=== PATIENT | female | born 1980 | race Caucasian/White ===

== ENCOUNTER 2018-07-11 16:57 | Emergency (ER) | payer MEDICARE ==
[~2018-07-11] VITALS: Ht 165.1 cm; Wt 145.1 kg
--- OUTSIDE RECORDS SUMMARY | 2018-07-11 17:00 | XMS REPORT | Continuity of Care Document ---
Author Author [facility] Interface Address Unknown Phone Unavailable Problems Problem Status Onset Date Classification Date Reported Comments Source PAIN Active 03/17/2014 [facility] CHOLECYSTITIS Active 03/17/2014 [facility] Discharge Diagnosis: Dyspnea 01/05/2014 01/08/2014 [facility] Discharge Diagnosis: Abdominal pain in 01/05/2014 01/08/2014 [facility] RUQ PAIN Active 01/05/2014 [facility] CHEST PAINS Active 01/04/2014 [facility] Resolved 03/23/2013 Problem 03/20/2014 [facility] Diabetes, gestational Active Problem 03/20/2014 [facility] Gestational diabetes mellitus, class A>1< Active Problem 03/20/2014 [facility] JUAN Active 05/11/2018 [facility] Major depressive disorder in full remission, unspecified whether recurrent Active 05/11/2018 [facility] CHOLECYSTITIS NOS Active [facility] Medications Medication Details Route Status Patient Instructions Ordering Provider Order Date Source DULoxetine (CYMBALTA) 30 mg delayed release capsule Take 3 capsules by mouth daily. Oral Active 04/22/2018 [facility] escitalopram oxalate (LEXAPRO) 20 mg tablet Take 20 mg by mouth daily. Oral No Longer Active 03/18/2018 [facility] DULoxetine (CYMBALTA) 60 mg delayed release capsule Take 1 capsule by mouth daily. Oral No Longer Active 03/18/2018 [facility] DULoxetine (CYMBALTA) 30 mg delayed release capsule Take 1 capsule by mouth every morning for 1 week, then increase to 2 capsules every morning. No Longer Active 02/18/2018 [facility] Duloxetine 30 Mg Capsule,Delayed Release Cymbalta 30 Mg Capsule,Delayed Release Take 1 capsule by mouth every morning for 1 week, then increase to 2 capsules every morning. Active 02/18/2018 [facility] Zofran 4 mg, Route: IV, Q4H, Dosing Weight 125.909, kg, Start date: 03/18/14 20:00:00, Duration: 30 day, Stop date: 04/17/14 16:00:00 Inactive 03/19/2014 [facility] Acetaminophen 325 MG / Hydrocodone Bitartrate 5 MG Oral Tablet 2 tab, PO, Q4H, Pain Score 4-6, 0 Refill(s) Active 03/19/2014 [facility] Zofran 4 mg, 2 mL, Route: IV, Drug form: INJ, Q4H, Dosing Weight 125.909, kg, PRN as needed for nausea/vomiting, Start date: 03/18/14 17:04:00, Duration: 30 day, Stop date: 04/17/14 17:03:00Notes: (Same as: Zofran) Inactive 03/18/2014 [facility] Acetaminophen 325 MG / Hydrocodone Bitartrate 5 MG Oral Tablet 2 tab, Route: PO, Drug Form: TAB, Dosing Weight 125.909, kg, Q4H, PRN Pain Score 4-6, Start date: 03/18/14 16:02:00, Duration: 30 day, Stop date: 04/17/14 16:01:00Notes: (Same as: Lowgap 325/5) Do not exceed 4gm/day of acetaminophen. Inactive 03/18/2014 [facility] Morphine 2 mg, 1 mL, Route: IVP, Drug form: INJ, Q2H, Dosing Weight 125.909, kg, PRN Pain Score 7-10, Start date: 03/18/14 16:01:00, Duration: 30 day, Stop date: 04/17/14 16:00:00Notes: (Same as:MORPhine Sulfate) Inactive 03/18/2014 [facility] Ofirmev 1,000 mg, Route: IV, Drug form: INJ, ONCE, Dosing Weight 125.909, kg, PRN Pain, for > or=50 kg, Start date: 03/18/14 12:10:00 Inactive 03/18/2014 [facility] Acetaminophen 325 MG / Hydrocodone Bitartrate 10 MG Oral Tablet [Lowgap 10/325] 1 tab, Route: PO, Drug Form: TAB, Dosing Weight 125.909, kg, Q4H, PRN Pain, Start date: 03/18/14 12:10:00, Duration: 30 day, Stop date: 04/17/14 12:09:00 Inactive 03/18/2014 [facility] Naloxone 0.04 mg, Route: IVP, Q2MIN, Dosing Weight 125.909, kg, PRN Narcotic Reversal, Start date: 03/18/14 12:10:00, Duration: 8 doses or times, Stop date: Limited # of times Inactive 03/18/2014 [facility] Oxycodone 5 mg, Route: PO, Drug form: TAB, Q4H, Dosing Weight 125.909, kg, PRN Pain Score 4-6, Start date: 03/18/14 12:10:00, Duration: 30 day, Stop date: 04/17/14 12:09:00 Inactive 03/18/2014 [facility] Fentanyl 25 microgram, Route: IVP, Q5Min, Dosing Weight 125.909, kg, PRN Pain Score 4-6, Start date: 03/18/14 12:10:00, Duration: 4 doses or times, Stop date: Limited # of times Inactive 03/18/2014 [facility] Hydromorphone 0.5 mg, Route: IVP, Q5Min, Dosing Weight 125.909, kg, PRN Pain Score 7-10, Start date: 03/18/14 12:10:00, Duration: 4 doses or times, Stop date: Limited # of times Inactive 03/18/2014 [facility] Ondansetron 4 mg, Route: IVP, ONCE, Dosing Weight 125.909, kg, PRN Nausea & Vomiting, Start date: 03/18/14 12:10:00 Inactive 03/18/2014 [facility] Flumazenil 0.2 mg, Route: IVP, PRN, Dosing Weight 125.909, kg, PRN Benzodiazepine Reversal, Initial dose, Start date: 03/18/14 12:10:00, Duration: 30 day, Stop date: 04/17/14 12:09:00 Inactive 03/18/2014 [facility] Meperidine 12.5 mg, Route: IVP, Q30Min, Dosing Weight 125.909, kg, PRN Other -See Comment, For shivering, Start date: 03/18/14 12:10:00, Duration: 2 doses or times, Stop date: Limited # of times Inactive 03/18/2014 [facility] Influenza Virus Vaccine, Inactivated H-Gopjfncl-25-2007 (H3N2)-like virus (B-Qepcxuz-880-2007 [facility] [place] X-175C) strain / Influenza Virus Vaccine, Inactivated S-Aumcgmxo-92-2007, IVR-148 (H1N1) strain / Influenza Virus Vaccine, Inactivated, G-Zvknjfx-1-lik 0.5 mL, Route: IM, Drug Form: SUSP, Daily, Start date: 03/18/14 9:00:00, Duration: 1 doses or times, Stop date: 03/18/14 9:00:00Notes: (Same as: Fluzone Quadrivalent) Inactive 03/18/2014 [facility] Ondansetron 4 mg, 2 mL, Route: IVP, Drug form: INJ, Q8H, Dosing Weight 125.909, kg, PRN Nausea & Vomiting, Start date: 03/18/14 4:47:56, Stop date: 04/17/14 4:42:00Notes: (Same as: Zofran) Inactive 03/18/2014 [facility] Morphine 2 mg, 1 mL, Route: IVP, Drug form: INJ, Q3H, Dosing Weight 125.909, kg, PRN Pain Score 4-6, Start date: 03/18/14 4:47:51, Stop date: 04/17/14 4:42:00Notes: (Same as:MORPhine Sulfate) Inactive 03/18/2014 [facility] D5NS 1,000 mL 1,000 mL, Rate: 150 ml/hr, Infuse over: 6.7 hr, Route: IV, Dosing Weight 125.909 kg, Total Volume: 1,000, Start date: 03/18/14 4:47:46, Stop date: 04/17/14 4:42:00 Inactive 03/18/2014 [facility] D5NS 1,000 mL 1,000 mL, Rate: 150 ml/hr, Infuse over: 6.7 hr, Route: IV, Dosing Weight 125.909 kg, Total Volume: 1,000, Start date: 03/18/14 4:43:00, Duration: 30 day, Stop date: 04/17/14 4:42:00 Inactive 03/18/2014 [facility] Ondansetron 4 mg, 2 mL, Route: IVP, Drug form: INJ, Q8H, Dosing Weight 125.909, kg, PRN Nausea & Vomiting, Start date: 03/18/14 4:43:00, Duration: 30 day, Stop date: 12/29/14 4:42:00Notes: (Same as: Zofran) Inactive 03/18/2014 [facility] Morphine 2 mg, 1 mL, Route: IVP, Drug form: INJ, Q3H, Dosing Weight 125.909, kg, PRN Pain Score 4-6, Start date: 03/18/14 4:43:00, Duration: 30 day, Stop date: 04/17/14 4:42:00Notes: (Same as:MORPhine Sulfate) Inactive 03/18/2014 [facility] Multivitamins with Folic Acid 0.4 mg oral tablet 1 tab, PO, Daily, # 100 tab, 0 Refill(s) On Hold 03/18/2014 [facility] Morphine 4 mg, 2 mL, Route: IVP, Drug form: INJ, ONCE, Dosing Weight 125.909, kg, Priority: STAT, Start date: 03/18/14 3:12:00, Stop date: 03/18/14 3:12:00Notes: (Same as:MORPhine Sulfate) Inactive 03/18/2014 [facility] D5NS 1,000 mL 1,000 mL, Rate: 150 ml/hr, Infuse over: 6.7 hr, Route: IV, Dosing Weight 125.909 kg, Total Volume: 1,000, Start date: 03/18/14 3:12:00, Duration: 30 day, Stop date: 04/17/14 3:11:00 Inactive 03/18/2014 [facility] Invanz 1 gm, Route: IVPB, ONCE, Dosing Weight 125.909, kg, Priority: STAT, Start date: 03/18/14 3:11:00, Stop date: 03/18/14 3:11:00Notes: (Same as: INVanz) Refrigerate. NOT COMPATIBLE WITH D5W. Stable in refrigerator for 24 hours. Inactive 03/18/2014 [facility] Sodium Chloride 0.9% (titrate) 250 mL 250 mL, Rate: policy services representative for use with blood product administration, Dosing Weight 125.909, kg, Route: IV, Total Volume: 250, Start Date: 03/18/14 2:42:00, Duration: 1 day, Stop date: 03/19/14 2:41:00, Replace Every: 24 hr Inactive 03/18/2014 [facility] Sodium Chloride 0.154 MEQ/ML Injectable Solution 500 mL, 500 ml/hr, Infuse Over: 1 hr, Route: IV, 500, Drug form: INJ, ONCE, Priority: STAT, Dosing Weight 125.909 kg, Start date: 03/17/14 22:11:00, Duration: 1 doses or times, Stop date: 03/17/14 22:11:00 Inactive 03/18/2014 [facility] Zofran 4 mg, 2 mL, Route: IVP, Drug form: INJ, ONCE, Dosing Weight 125.909, kg, Priority: STAT, Start date: 03/17/14 22:10:00, Stop date: 03/17/14 22:10:00Notes: (Same as: Zofran) Inactive 03/18/2014 [facility] Morphine 4 mg, 2 mL, Route: IVP, Drug form: INJ, ONCE, Dosing Weight 125.909, kg, Priority: STAT, Start date: 03/17/14 22:09:00, Stop date: 03/17/14 22:09:00Notes: (Same as:MORPhine Sulfate) Inactive 03/18/2014 [facility] Escitalopram 20 Mg Tablet Lexapro 20 Mg Tablet Take 20 mg by mouth daily. Oral Active [facility] Allergies, Adverse Reactions, Alerts Substance Category Reaction Severity Reaction type Status Date Reported Comments Source Tramadol Propensity to adverse reactions to drug Active 02/18/2018 [facility] Immunizations Immunization Date Given Site Status Last Updated Comments Source influenza virus vaccine, inactivated 03/18/2014 Left Deltoid completed Reece [facility] Results Order Name Results Value Reference Range Date Interpretation Comments Source BLOOD BANK RESULTS AB Int Anti- D 03/18/2014 [facility] BLOOD BANK RESULTS Antibody Scrn Positive 1 (03/18/14 3:26 AM) 03/18/2014 1Result Comment: 03/18/2014 04:41 [id number] "Significant Findings (Pos ABSC) called to Werner Ruvalcaba at 03/18/2014 04:41 by NICOLLE. Read Back OK." [facility] BLOOD BANK RESULTS ABO/Rh O NEG 03/18/2014 [facility] BLOOD BANK RESULTS AB Int Anti- D 03/18/2014 [facility] BLOOD BANK RESULTS AB Int Non- specific IgG Antibody 03/18/2014 [facility] HEMATOLOGY PTT 31.1 s 22.9 - 35.8 03/18/2014 5Interpretive Data: Heparin Therapeutic Range: 57 - 92 Seconds [facility] HEMATOLOGY PT 13.0 s 12.0 - 14.7 03/18/2014 [facility] HEMATOLOGY INR 0.98 0.85 - 1.17 03/18/2014 4Interpretive Data: RECOMMENDED RANGES FOR PROTIME INR: 2.0-3.0 for most medical and surgical thromboembolic states. 2.5-3.5 for artificial heart valves and recurrent embolism. INR SHOULD BE USED ONLY FOR PATIENTS ON STABLE ANTICOAGULANT THERAPY. [facility] URINE AND STOOL UA Bacteria Occasional /HPF None Seen /HPF 03/18/2014 [facility] URINE AND STOOL UA WBC 4 /HPF 0 - 5 03/18/2014 [facility] URINE AND STOOL UA RBC 4 /HPF 0 - 2 03/18/2014 [facility] URINE AND STOOL UA Mucus Few /LPF None Seen /LPF 03/18/2014 [facility] URINE AND STOOL UA Leuk Est Moderate *ABN* (03/17/14 11:11 PM) Negative 03/18/2014 [facility] URINE AND STOOL UA Sq Epi Occasional /LPF Few /LPF 03/18/2014 [facility] URINE AND STOOL UA Urobilinogen 2.0 mg/dL 0.1 - 1.0 03/18/2014 [facility] URINE AND STOOL UA Blood Negative (03/17/14 11:11 PM) Negative 03/18/2014 [facility] URINE AND STOOL UA Bili Negative *NA* (03/17/14 11:11 PM) Negative 03/18/2014 [facility] URINE AND STOOL UA Glucose Negative mg/dL Negative mg/dL 03/18/2014 [facility] URINE AND STOOL UA Ketones Negative mg/dL Negative mg/dL 03/18/2014 [facility] URINE AND STOOL UA Nitrite Negative (03/17/14 11:11 PM) Negative 03/18/2014 [facility] URINE AND STOOL UA Color Yellow *NA* (03/17/14 11:11 PM) Yellow 03/18/2014 [facility] URINE AND STOOL UA pH 5.0 5.0 - 8.0 03/18/2014 [facility] URINE AND STOOL UA Turbidity Clear (03/17/14 11:11 PM) Clear 03/18/2014 [facility] URINE AND STOOL UA Spec Grav 1.024 <=1.030 03/18/2014 [facility] URINE AND STOOL UA Protein Negative mg/dL Negative mg/dL 03/18/2014 [facility] CHEM PANEL Lipase Lvl 181 unit/L 73 - 393 03/18/2014 [facility] CHEM PANEL Globulin 3.5 g/dL 2.0 - 4.0 03/18/2014 [facility] CHEM PANEL AGAP 10.3 meq/L 10.0 - 20.0 03/18/2014 [facility] CHEM PANEL B/C Ratio 16 6 - 25 03/18/2014 [facility] CHEM PANEL A/G Ratio 1.0 0.7 - 1.6 03/18/2014 [facility] CHEM PANEL eGFR 66 mL/min/1.73m2 03/18/2014 2Result Comment: The eGFR is calculated using the CKD-EPI formula. In most young, healthy individuals the eGFR will be >90 mL/min/1.73m2. The eGFR declines with age. An eGFR of 60-89 may be normal in some populations, particularly the elderly, for whom the CKD-EPI formula has not been extensively validated. Use of the eGFR is not recommended in the following populations: Individuals with unstable creatinine concentrations, including patients and those with serious co-morbid conditions. Patients with extremes in muscle mass or diet. The data above are obtained from the National Kidney Disease Education Program (NKDEP) which additionally recommends that when the eGFR is used in patients with extremes of body mass index for purposes of drug dosing, the eGFR should be multiplied by the estimated BMI. [facility] CHEM PANEL CO2 28 meq/L 24 - 32 03/18/2014 [facility] CHEM PANEL Calcium Lvl 9.0 mg/dL 8.5 - 10.5 03/18/2014 [facility] CHEM PANEL Total Protein 7.0 g/dL 6.4 - 8.4 03/18/2014 [facility] CHEM PANEL Alk Phos 130 unit/L 39 - 136 03/18/2014 [facility] CHEM PANEL Bili Total 0.4 mg/dL 0.2 - 1.3 03/18/2014 [facility] CHEM PANEL ALT 33 unit/L 0 - 65 03/18/2014 [facility] CHEM PANEL AST 31 unit/L 0 - 37 03/18/2014 [facility] CHEM PANEL Albumin Lvl 3.5 g/dL 3.5 - 5.0 03/18/2014 [facility] CHEM PANEL BUN 18 mg/dL 7 - 22 03/18/2014 [facility] CHEM PANEL Creatinine Lvl 1.1 mg/dL 0.5 - 1.4 03/18/2014 [facility] CHEM PANEL Glucose Lvl 121 mg/dL 70 - 99 03/18/2014 3Interpretive Data: Adult reference range values reflect the clinical guidelines of the [employer]. [facility] CHEM PANEL Chloride Lvl 105 meq/L 95 - 109 03/18/2014 [facility] CHEM PANEL Sodium Lvl 139 meq/L 135 - 145 03/18/2014 [facility] CHEM PANEL Potassium Lvl 4.3 meq/L 3.5 - 5.1 03/18/2014 [facility] ENDOCRINOLOGY S Preg Negative *NA* (03/17/14 10:18 PM) Negative 03/18/2014 [facility] HEMATOLOGY RBC 3.93 M/CMM 4.20 - 5.40 03/18/2014 [facility] HEMATOLOGY WBC 11.3 K/CMM 3.7 - 10.4 03/18/2014 [facility] HEMATOLOGY Hgb 12.5 g/dL 12.0 - 16.0 03/18/2014 [facility] MCH 31.9 pg 27.0 - 31.0 03/18/2014 [facility] RDW 13.2 % 11.5 - 14.5 03/18/2014 [facility] HEMATOLOGY MPV 8.7 fL 7.4 - 10.4 03/18/2014 [facility] HEMATOLOGY Hct 38.3 % 36.0 - 48.0 03/18/2014 [facility] HEMATOLOGY MCV 97.3 fL 80.0 - 98.0 03/18/2014 [facility] MCHC 32.8 g/dL 32.0 - 36.0 03/18/2014 [facility] HEMATOLOGY Platelet 235 K/CMM 133 - 450 03/18/2014 [facility] HEMATOLOGY Basophils 0.5 % 0.0 - 1.0 03/18/2014 [facility] HEMATOLOGY Lymphocytes # 2.0 K/CMM 1.0 - 5.5 03/18/2014 [facility] HEMATOLOGY Segs-Bands # 8.5 K/CMM 1.5 - 8.1 03/18/2014 [facility] HEMATOLOGY Monocytes # 0.6 K/CMM 0.0 - 0.8 03/18/2014 [facility] HEMATOLOGY Eosinophils # 0.2 K/CMM 0.0 - 0.5 03/18/2014 [facility] HEMATOLOGY Basophils # 0.1 K/CMM 0.0 - 0.2 03/18/2014 [facility] HEMATOLOGY Segs 74.9 % 45.0 - 75.0 03/18/2014 [facility] HEMATOLOGY Monocytes 5.0 % 2.0 - 12.0 03/18/2014 [facility] HEMATOLOGY Lymphocytes 17.9 % 20.0 - 40.0 03/18/2014 [facility] HEMATOLOGY Eosinophils 1.7 % 0.0 - 4.0 03/18/2014 [facility] Chest 1view Chest 1view HISTORY: Abnormal chest sounds. One view chest. Lungs are clear. Heart size normal. There is no pleural effusion or pneumothorax. IMPRESSION: No acute finding. SL:12 03/18/2014 - - Read by: Satish Arenas MD Dictated Date/time: 03/18/14 03:06 Electronically Signed by: Satish Arenas MD 03/18/14 03:08 FINAL REPORT [facility] Vital Signs Vital Sign Value Date Comments Source Systolic (mm Hg) 122 04/22/2018 [facility] Diastolic (mm Hg) 72 04/22/2018 [facility] Heart Rate 72 04/22/2018 [facility] Temperature Oral (F) 36.28 [place] 04/22/2018 [facility] Respitory Rate 18 04/22/2018 [facility] Height 167.6 cm 04/22/2018 [facility] Weight 143.79 04/22/2018 [facility] Systolic (mm Hg) 136 03/18/2018 [facility] Diastolic (mm Hg) 78 03/18/2018 [facility] Heart Rate 108 03/18/2018 [facility] Temperature Oral (F) 36.61 [place] 03/18/2018 [facility] Respitory Rate 20 03/18/2018 [facility] Height 167.6 cm 03/18/2018 [facility] Weight 143.79 03/18/2018 [facility] Systolic (mm Hg) 121 02/18/2018 [facility] Diastolic (mm Hg) 57 02/18/2018 [facility] Heart Rate 78 02/18/2018 [facility] Temperature Oral (F) 36.61 [place] 02/18/2018 [facility] Respitory Rate 20 02/18/2018 [facility] Height 167.6 cm 02/18/2018 [facility] Weight 145.151 02/18/2018 [facility] BMI Calculated 51.65 02/18/2018 [facility] Temperature Oral (F) 97.3 F 03/18/2014 [facility] Systolic (mm Hg) 123 03/18/2014 [facility] Respitory Rate 14 03/18/2014 [facility] Heart Rate 59 03/18/2014 [facility] Diastolic (mm Hg) 78 03/18/2014 [facility] Diastolic (mm Hg) 63 03/18/2014 [facility] Systolic (mm Hg) 109 03/18/2014 [facility] Respitory Rate 12 03/18/2014 [facility] Diastolic (mm Hg) 62 03/18/2014 [facility] Respitory Rate 12 03/18/2014 [facility] Systolic (mm Hg) 108 03/18/2014 [facility] Temperature Oral (F) 97.6 F 03/18/2014 [facility] Heart Rate 50 03/18/2014 [facility] BMI Calculated 44.8 03/18/2014 [facility] Weight 125.909 03/18/2014 [facility] Height 167.64 cm 03/18/2014 [facility] Heart Rate 54 03/18/2014 [facility] Temperature Oral (F) 97.7 F 03/18/2014 [facility] BMI Calculated 44.8 03/18/2014 [facility] Height 167.64 cm 03/18/2014 [facility] Weight 125.909 03/18/2014 [facility] Systolic (mm Hg) 133 01/05/2014 [facility] Diastolic (mm Hg) 62 01/05/2014 [facility] Systolic (mm Hg) 130 01/05/2014 [facility] Diastolic (mm Hg) 59 01/05/2014 [facility] Respitory Rate 16 01/05/2014 [facility] Temperature Oral (F) 97.8 F 01/05/2014 [facility] Heart Rate 67 01/05/2014 [facility] BMI Calculated 48.2 01/05/2014 [facility] Weight 135.455 01/05/2014 [facility] Height 167.64 cm 01/05/2014 [facility] Heart Rate 71 01/05/2014 [facility] Systolic (mm Hg) 137 01/05/2014 [facility] Respitory Rate 18 01/05/2014 [facility] Diastolic (mm Hg) 67 01/05/2014 [facility] Height 167.64 cm 01/05/2014 [facility] BMI Calculated 48.2 01/05/2014 [facility] Weight 135.455 01/05/2014 [facility] Respitory Rate 20 01/05/2014 [facility] Heart Rate 71 01/05/2014 [facility] Temperature Oral (F) 97.8 F 01/05/2014 [facility] Diastolic (mm Hg) 119 01/05/2014 [facility] Systolic (mm Hg) 149 01/05/2014 [facility] Encounters Location Location Details Encounter Type Encounter Number Reason For Visit Attending Provider ADM Date DC Date Status Source [facility] [id number] Brando Dean 01/05/2014 01/05/2014 [facility] OBS Observation Patient [id number] Evelin Mcintosh 01/05/2014 01/05/2014 [facility] Inpatient [id number] Alfonso Barba 03/18/2014 [facility] Office Visit [id number] Laura Jackson MD 02/18/2018 02/18/2018 [facility] Visit [id number] 02/19/2018 [facility] [id number] [facility] [facility] [id number] Laura Jackson MD 03/18/2018 03/18/2018 [facility] [id number] 04[facility]22/[address] [facility] Office Visit [id number] Laura Jackson MD 04/22/2018 04/22/2018 [facility] Procedures Procedure Code Date Perfomer Comments Source Lymph node operation [id number] [facility] Operation on tonsils [id number] [facility]
--- OUTSIDE RECORDS SUMMARY | 2018-07-11 17:00 | XMS REPORT | Clinical Summary ---
Author Author [facility] Organization [facility] Address Unknown Phone Unavailable Care Team Providers Care Efficiency Manager Name Role Phone PCP Unavailable Allergies Comments Active Allergy Reactions Severity Noted Date Tramadol 02/18/2018 Medications End Date Status Medication Sig Dispensed Refills Start Date Active DULoxetine (CYMBALTA) 30 Take 3 90 capsule 2 201 mg delayed release capsules by 9 capsuleIndications: JUAN mouth daily. (generalized anxiety disorder), Major depressive disorder in full remission, unspecified whether recurrent 03/18/2018 Discontinued escitalopram oxalate Take 20 mg by 0 (LEXAPRO) 20 mg mouth daily. tabletIndications: JUAN (generalized anxiety disorder), Major depressive disorder in full remission, unspecified whether recurrent 03/18/2018 Discontinued DULoxetine (CYMBALTA) 30 Take 1 60 capsule 2 201 mg delayed release capsule by 8 capsuleIndications: JUAN mouth every (generalized anxiety morning for 1 disorder), Major week, then depressive disorder in increase to 2 full remission, capsules unspecified whether every recurrent morning. 04/22/2018 Discontinued DULoxetine (CYMBALTA) 60 Take 1 30 capsule 2 201 mg delayed release capsule by 8 capsuleIndications: JUAN mouth daily. (generalized anxiety disorder) Active Problems Not on file Encounters Care Team Description Date Type Specialty Laura Jackson MD JUAN (generalized anxiety disorder) (Primary Dx); Major depressive disorder in full remission, unspecified whether recurrent 04/22/2018 Office Visit Psychiatry 04/22/2018 Travel Laura Jackson MD JUAN (generalized anxiety disorder) (Primary Dx) 03/18/2018 Office Visit Psychiatry Laura Jackson MD JUAN (generalized anxiety disorder) (Primary Dx); Major depressive disorder in full remission, unspecified whether recurrent 02/18/2018 Office Visit Psychiatry after 07/10/2017 Social History Date Tobacco Use Types Packs/Day Years Used Never Assessed Sex Assigned at Date Recorded Not on file Industry Job Start Date Occupation Not on file Not on file Not on file Travel End Travel History Travel Start No recent travel history available. Last Filed Vital Signs Time Taken Vital Sign Reading 04/22/2018 10:42 AM COMPUTATIONAL THEORY SCIENTIST Blood Pressure 122/72 04/22/2018 10:42 AM COMPUTATIONAL THEORY SCIENTIST Pulse 72 04/22/2018 10:42 AM COMPUTATIONAL THEORY SCIENTIST Temperature 36.3 C (97.3 F) 04/22/2018 10:42 AM COMPUTATIONAL THEORY SCIENTIST Respiratory Rate 18 04/22/2018 10:42 AM COMPUTATIONAL THEORY SCIENTIST Oxygen Saturation 96% - Inhaled Oxygen - Concentration 04/22/2018 10:42 AM COMPUTATIONAL THEORY SCIENTIST Weight 143.8 kg (317 lb) 04/22/2018 10:42 AM COMPUTATIONAL THEORY SCIENTIST Height 167.6 cm (5' 6") 04/22/2018 10:42 AM COMPUTATIONAL THEORY SCIENTIST Body Mass Index 51.17 Plan of Treatment Health Maintenance Due Date Last Done Comments Cervical Cancer Scrn (3 09/27/2000 Yrs) IMM Influenza Seasonal 01/18/2018Jan to June (>/=19 yrs) Results Not on fileafter 07/10/2017 Insurance Type Payer Benefit Subscriber ID Effective Phone Address Plan / Dates Group [facility] [facility] xxxxxxx 2017-P [phone] [facility] resent [id number] [place], [place] [address] [facility] xxxxxxxxxxxx 2018-[address] [facility] [id number] CHOICE [facility] [place] [address] [facility] [place] xxxxxxxxxxxx 2018-P [phone] [address] resent [id number] [place] [address] [employer] PLAN [facility] PLAN xxxxxxx 2017-8 [address] [place] [address]
--- OUTSIDE RECORDS SUMMARY | 2018-07-11 17:00 | XMS REPORT | Summary of Care ---
Author Organization Unknown Address Unknown Phone Unavailable Encounter TAMERA Early(PAGE) [id number] Date(s): 01/05/14 - 01/05/14 [facility] [address] Discharge Diagnosis: Dyspnea Discharge Diagnosis: Abdominal pain in Discharge Disposition: Acute Care Physician Attending: Brando Dean MD Reason for Visit CHEST PAINS Vital Signs Most recent to 1 2 oldest [Reference Range]: Height 167.64 cm (01/05/14 12:27 AM) Temperature Oral 97.8 DegF [96.4-99.1 DegF] (01/05/14 12:27 AM) Systolic Blood 137 mmHg 149 mmHg Pressure [90-140 (01/05/14 12:50 AM) *HI* mmHg] (01/05/14 12:27 AM) Diastolic Blood 67 mmHg 119 mmHg Pressure [60-90 (01/05/14 12:50 AM) *HI* mmHg] (01/05/14 12:27 AM) Respiratory Rate 18 BRMIN 20 BRMIN [14-20 BRMIN] (01/05/14 12:50 AM) (01/05/14 12:27 AM) Peripheral Pulse 71 bpm 71 bpm Rate [60-100 bpm] (01/05/14 12:50 AM) (01/05/14 12:27 AM) Weight 135.455 kg (01/05/14 12:27 AM) Body Mass Index 48.2 m2 (01/05/14 12:27 AM) Problem List Condition Effective Dates Status Health Status Informant Diabetes, Active gestational(Confirme d) Gestational diabetes Active mellitus, class A>1<(Confirmed) (Confirmed) 03/23/13 Active (Confirmed) 02/16/99 - 1999 Resolved (Confirmed) 03/10/02 - 12/01/02 Resolved Allergies, Adverse Reactions, Alerts Substance Reaction Severity Status NKDA Active Medications No data available for this section Medications Administered During Your Visit No data available for this section Immunizations No data available for this section Social History Social History Type Response Substance Abuse Use: Past, Type: Marijuana Sexual Sexually active: Yes Exercise Exercise type: Walking Employment/School 1 Alcohol Use: Past, Type: Beer, Type: Wine, Type: Liquor2 Smoking Status Former smoker, Type: Cigarettes, Exposure to Tobacco Smoke None, Cigarette Smoking Last 365 Days No, Reg Smoking Cessation Counseling No 1none 2not with
--- OUTSIDE RECORDS SUMMARY | 2018-07-11 17:00 | XMS REPORT | Clinical Summary ---
Author Author [facility] Organization [facility] Address Unknown Phone Unavailable Care Team Providers Care Policy Specialist Name Role Phone PCP Unavailable Allergies Comments [...] whether recurrent 02/18/2018 Office Visit Psychiatry after 05/04/2017 Social History Date Tobacco Use Types Packs/Day Years Used Never Assessed Sex Assigned at Date Recorded Not on file Industry Job Start Date Occupation Not on file Not on file Not on file Travel End Travel History Travel Start No recent travel history available. Last Filed Vital Signs Time Taken Vital Sign Reading 04/22/2018 10:42 AM LINE PATROLMAN Blood Pressure 122/72 04/22/2018 10:42 AM LINE PATROLMAN Pulse 72 04/22/2018 10:42 AM LINE PATROLMAN Temperature 36.3 C (97.3 F) 04/22/2018 10:42 AM LINE PATROLMAN Respiratory Rate 18 04/22/2018 10:42 AM LINE PATROLMAN Oxygen Saturation 96% - Inhaled Oxygen - Concentration 04/22/2018 10:42 AM LINE PATROLMAN Weight 143.8 kg (317 lb) 04/22/2018 10:42 AM LINE PATROLMAN Height 167.6 cm (5' 6") 04/22/2018 10:42 AM LINE PATROLMAN Body Mass Index 51.17 Plan of Treatment Care Team Description Date Type Specialty Flavia Colby MD [address] [place] [address] [phone] 06/01/2018 Office Visit Psychiatry Health Maintenance Due Date Last Done Comments Cervical Cancer Scrn (3 09/27/2000 Yrs) IMM Influenza Seasonal 01/18/2018 Oct to June (>/=19 yrs) Results Not on fileafter 05/04/2017 Insurance Type Payer Benefit Subscriber ID Effective Phone Address Plan / Dates Group [facility] xxxxxxx 2017-P [phone] [address] [facility] FAMILY resent [id number] [place], [place] [address] [facility] CHOICE [place] xxxxxxxxxxxx 2018-P [phone] [address] resent [id number] [place] [address] [facility] PLAN H[facility] PLAN xxxxxxx 2017-8 [address] [place] [address]
--- OUTSIDE RECORDS SUMMARY | 2018-07-11 17:00 | XMS REPORT | Summary of Care ---
Author Organization Unknown Address Unknown Phone Unavailable Encounter HQ Sharath(PAGE) [id number] Date(s): 03/17/14 - 03/18/14 [facility] [address] [address] Discharge Disposition: Home Physician Attending: Alfonso Barba MD Physician Admitting: Alfonso Barba MD Reason for Visit CHOLECYSTITIS Vital Signs 1 2 3 Most recent to oldest [Reference Range]: 167.64 cm (03/18/14 4:32 AM) 167.64 cm (03/17/14 9:33 PM) Height 97.3 DegF (03/18/14 4:22 PM) 97.6 DegF (03/18/14 7:57 AM) 97.7 DegF (03/18/14 4:00 AM) Temperature Oral [96.4-99.1 DegF] 123 mmHg (03/18/14 4:22 PM) 109 mmHg (03/18/14 12:45 PM) 108 mmHg (03/18/14 12:30 PM) Systolic Blood Pressure [90-140 mmHg] 78 mmHg (03/18/14 4:22 PM) 63 mmHg (03/18/14 12:45 PM) 62 mmHg (03/18/14 12:30 PM) Diastolic Blood Pressure [60-90 mmHg] 14 BRMIN (03/18/14 4:22 PM) 12 BRMIN *LOW* (03/18/14 12:45 PM) 12 BRMIN *LOW* (03/18/14 12:30 PM) Respiratory Rate [14-20 BRMIN] 59 bpm *LOW* (03/18/14 4:22 PM) 50 bpm *LOW* (03/18/14 7:57 AM) 54 bpm *LOW* (03/18/14 4:00 AM) Peripheral Pulse Rate [60-100 bpm] 125.909 kg (03/18/14 4:32 AM) 125.909 kg (03/17/14 9:33 PM) Weight 44.8 m2 (03/18/14 4:32 AM) 44.8 m2 (03/17/14 9:33 PM) Body Mass Index Problem List Condition Effective Dates Status Health Status Informant Diabetes, Active gestational(Confirme d) Gestational diabetes Active mellitus, class A>1<(Confirmed) (Confirmed) 03/23/13 - 03/20/00 Resolved 12:00 AM (Confirmed) 02/16/99 - 1999 Resolved (Confirmed) 03/10/02 - 12/01/02 Resolved Allergies, Adverse Reactions, Alerts Substance Reaction Severity Status NKDA Active Medications acetaminophen-hydrocodone 325 mg-5 mg oral tablet 2 tab, Route: PO, Drug Form: TAB, Dosing Weight 125.909, kg, Q4H, PRN Pain Score 4-6, Start date: 03/18/14 16:02:00, Duration: 30 day, Stop date: 04/17/14 16:01 :00 Notes: (Same as: [place] 325/5) Do not exceed 4gm/day of acetaminophen. Start Date: 03/18/14 Stop Date: 03/18/14 Status: Discontinued acetaminophen-hydrocodone 325 mg-5 mg oral tablet 2 tab, PO, Q4H, Pain Score 4-6, 0 Refill(s) Start Date: 03/18/14 Status: Ordered acetaminophen-hydrocodone 325 mg-5 mg oral tablet 1 tab, PO, Q4H, Pain Score 1-3, 0 Refill(s) Start Date: 03/18/14 Status: Ordered acetaminophen-hydrocodone 325 mg-5 mg oral tablet 1 tab, Route: PO, Drug Form: TAB, Dosing Weight 125.909, kg, Q4H, PRN Pain Score 1-3, Start date: 03/18/14 16:02:00, Duration: 30 day, Stop date: 04/17/14 16:01 :00 Notes: (Same as: [place] 325/5) Do not exceed 4gm/day of acetaminophen. Start Date: 03/18/14 Stop Date: 03/18/14 Status: Discontinued D5NS 1,000 mL 1,000 mL, Rate: 150 ml/hr, Infuse over: 6.7 hr, Route: IV, Dosing Weight 125.909 kg, Total Volume: 1,000, Start date: 03/18/14 4:47:46, Stop date: 04/17/14 4:42 :00 Start Date: 03/18/14 Stop Date: 03/18/14 Status: Discontinued D5NS 1,000 mL 1,000 mL, Rate: 150 ml/hr, Infuse over: 6.7 hr, Route: IV, Dosing Weight 125.909 kg, Total Volume: 1,000, Start date: 03/18/14 3:12:00, Duration: 30 day, Stop d ate: 04/17/14 3:11:00 Start Date: 03/18/14 Stop Date: 03/18/14 Status: Discontinued D5NS 1,000 mL 1,000 mL, Rate: 150 ml/hr, Infuse over: 6.7 hr, Route: IV, Dosing Weight 125.909 kg, Total Volume: 1,000, Start date: 03/18/14 4:43:00, Duration: 30 day, Stop d ate: 04/17/14 4:42:00 Start Date: 03/18/14 Stop Date: 03/18/14 Status: Discontinued fentaNYL 25 microgram, Route: IVP, Q5Min, Dosing Weight 125.909, kg, PRN Pain Score 4-6, Start date: 03/18/14 12:10:00, Duration: 4 doses or times, Stop date: Limited # of times Start Date: 03/18/14 Stop Date: 03/18/14 Status: Discontinued flumazenil 0.2 mg, Route: IVP, PRN, Dosing Weight 125.909, kg, PRN Benzodiazepine Reversal, Initial dose, Start date: 03/18/14 12:10:00, Duration: 30 day, Stop date: 04/17 12:09:00 Start Date: 03/18/14 Stop Date: 03/18/14 Status: Discontinued hydromorphone 0.5 mg, Route: IVP, Q5Min, Dosing Weight 125.909, kg, PRN Pain Score 7-10, Start date: 03/18/14 12:10:00, Duration: 4 doses or times, Stop date: Limited # of ti mes Start Date: 03/18/14 Stop Date: 03/18/14 Status: Discontinued influenza virus vaccine, inactivated 0.5 mL, Route: IM, Drug Form: SUSP, Daily, Start date: 03/18/14 9:00:00, Duratio n: 1 doses or times, Stop date: 03/18/14 9:00:00 Notes: (Same as: Fluzone Quadrivalent) Start Date: 03/18/14 Stop Date: 03/18/14 Status: Completed INVanz + Sodium Chloride 0.9% IV 100 mL 1 gm, Route: IVPB, ONCE, Dosing Weight 125.909, kg, Priority: STAT, Start date: 03/18/14 3:11:00, Stop date: 03/18/14 3:11:00 Notes: (Same as: INVanz) Refrigerate. NOT COMPATIBLE WITH D5W. Stable in refri gerator for 24 hours. Start Date: 03/18/14 Stop Date: 03/18/14 Status: Completed meperidine 12.5 mg, Route: IVP, Q30Min, Dosing Weight 125.909, kg, PRN Other -See Comment, For shivering, Start date: 03/18/14 12:10:00, Duration: 2 doses or times, Stop d ate: Limited # of times Start Date: 03/18/14 Stop Date: 03/18/14 Status: Discontinued morphine Sulfate 4 mg, 2 mL, Route: IVP, Drug form: INJ, ONCE, Dosing Weight 125.909, kg, Priorit y: STAT, Start date: 03/18/14 3:12:00, Stop date: 03/18/14 3:12:00 Notes: (Same as:MORPhine Sulfate) Start Date: 03/18/14 Stop Date: 03/18/14 Status: Completed morphine Sulfate 2 mg, 1 mL, Route: IVP, Drug form: INJ, Q3H, Dosing Weight 125.909, kg, PRN Pain Score 4-6, Start date: 03/18/14 4:47:51, Stop date: 04/17/14 4:42:00 Notes: (Same as:MORPhine Sulfate) Start Date: 03/18/14 Stop Date: 03/18/14 Status: Discontinued morphine Sulfate 4 mg, 2 mL, Route: IVP, Drug form: INJ, ONCE, Dosing Weight 125.909, kg, Priorit y: STAT, Start date: 03/17/14 22:09:00, Stop date: 03/17/14 22:09:00 Notes: (Same as:MORPhine Sulfate) Start Date: 03/17/14 Stop Date: 03/17/14 Status: Completed morphine Sulfate 2 mg, 1 mL, Route: IVP, Drug form: INJ, Q2H, Dosing Weight 125.909, kg, PRN Pain Score 7-10, Start date: 03/18/14 16:01:00, Duration: 30 day, Stop date: 04/17/14 16:00:00 Notes: (Same as:MORPhine Sulfate) Start Date: 03/18/14 Stop Date: 03/18/14 Status: Discontinued morphine Sulfate 2 mg, 1 mL, Route: IVP, Drug form: INJ, Q3H, Dosing Weight 125.909, kg, PRN Pain Score 4-6, Start date: 03/18/14 4:43:00, Duration: 30 day, Stop date: 04/17/14 4:42:00 Notes: (Same as:MORPhine Sulfate) Start Date: 03/18/14 Stop Date: 03/18/14 Status: Discontinued naloxone 0.04 mg, Route: IVP, Q2MIN, Dosing Weight 125.909, kg, PRN Narcotic Reversal, St art date: 03/18/14 12:10:00, Duration: 8 doses or times, Stop date: Limited # of times Start Date: 03/18/14 Stop Date: 03/18/14 Status: Discontinued Hebron 10/325 oral tablet 1 tab, Route: PO, Drug Form: TAB, Dosing Weight 125.909, kg, Q4H, PRN Pain, Star t date: 03/18/14 12:10:00, Duration: 30 day, Stop date: 04/17/14 12:09:00 Start Date: 03/18/14 Stop Date: 03/18/14 Status: Discontinued NS (Bolus) IV 500 mL, 500 ml/hr, Infuse Over: 1 hr, Route: IV, 500, Drug form: INJ, ONCE, Prio rity: STAT, Dosing Weight 125.909 kg, Start date: 03/17/14 22:11:00, Duration: 1 doses or times, Stop date: 03/17/14 22:11:00 Start Date: 03/17/14 Stop Date: 03/17/14 Status: Completed Ofirmev 1,000 mg, Route: IV, Drug form: INJ, ONCE, Dosing Weight 125.909, kg, PRN Pain, for > or=50 kg, Start date: 03/18/14 12:10:00 Start Date: 03/18/14 Stop Date: 03/18/14 Status: Completed ondansetron 4 mg, Route: IVP, ONCE, Dosing Weight 125.909, kg, PRN Nausea & Vomiting, Start date: 03/18/14 12:10:00 Start Date: 03/18/14 Stop Date: 03/18/14 Status: Discontinued ondansetron 4 mg, 2 mL, Route: IVP, Drug form: INJ, Q8H, Dosing Weight 125.909, kg, PRN Naus ea & Vomiting, Start date: 03/18/14 4:47:56, Stop date: 04/17/14 4:42:00 Notes: (Same as: Fransico) Start Date: 03/18/14 Stop Date: 03/18/14 Status: Discontinued ondansetron 4 mg, 2 mL, Route: IVP, Drug form: INJ, Q8H, Dosing Weight 125.909, kg, PRN Naus ea & Vomiting, Start date: 03/18/14 4:43:00, Duration: 30 day, Stop date: 04/17/14 4:42:00 Notes: (Same as: Fransico) Start Date: 03/18/14 Stop Date: 03/18/14 Status: Discontinued oxyCODONE 5 mg, Route: PO, Drug form: TAB, Q4H, Dosing Weight 125.909, kg, PRN Pain Score 4-6, Start date: 03/18/14 12:10:00, Duration: 30 day, Stop date: 04/17/14 12:09: 00 Start Date: 03/18/14 Stop Date: 03/18/14 Status: Discontinued Multivitamins with Folic Acid 0.4 mg oral tablet 1 tab, PO, Daily, # 100 tab, 0 Refill(s) Start Date: 03/18/14 Status: Suspended Sodium Chloride 0.9% (titrate) 250 mL 250 mL, Rate: manager call center for use with blood product administration, Dosing Weight 1 25.909, kg, Route: IV, Total Volume: 250, Start Date: 03/18/14 2:42:00, Duration : 1 day, Stop date: 03/19/14 2:41:00, Replace Every: 24 hr Start Date: 03/18/14 Stop Date: 03/18/14 Status: Discontinued Zofran 4 mg, 2 mL, Route: IV, Drug form: INJ, Q4H, Dosing Weight 125.909, kg, PRN as ne eded for nausea/vomiting, Start date: 03/18/14 17:04:00, Duration: 30 day, Stop date: 04/17/14 17:03:00 Notes: (Same as: Zofran) Start Date: 03/18/14 Stop Date: 03/18/14 Status: Discontinued Zofran 4 mg, 2 mL, Route: IVP, Drug form: INJ, ONCE, Dosing Weight 125.909, kg, Priorit y: STAT, Start date: 03/17/14 22:10:00, Stop date: 03/17/14 22:10:00 Notes: (Same as: Zofran) Start Date: 03/17/14 Stop Date: 03/17/14 Status: Completed Zofran 4 mg, Route: IV, Q4H, Dosing Weight 125.909, kg, Start date: 03/18/14 20:00:00, Duration: 30 day, Stop date: 04/17/14 16:00:00 Start Date: 03/18/14 Stop Date: 03/18/14 Status: Canceled Results BLOOD BANK RESULTS 1 2 3 Most recent to oldest [Reference Range]: O NEG *Unknown* (03/18/14 3:26 AM) ABO/Rh Positive 1 (03/18/14 3:26 AM) Antibody Scrn Anti-D *Unknown* (03/18/14 6:48 AM) Anti-D *Unknown* (03/18/14 3:26 AM) Non-specific IgG Antibody *Unknown* (03/18/14 3:26 AM) AB Int 1Result Comment: 03/18/2014 04:41 [id number] "Significant Findings (Pos ABSC) called to Werner Ruvalcaba at 03/18/2014 04:41 b y MP. Read Back OK." ELECTROLYTES 1 2 3 Most recent to oldest [Reference Range]: 139 mEq/L (03/17/14 10:18 PM) Sodium Lvl [135-145 mEq/L] 4.3 mEq/L (03/17/14 10:18 PM) Potassium Lvl [3.5-5.1 mEq/L] 105 mEq/L (03/17/14 10:18 PM) Chloride Lvl [95-109 mEq/L] 28 mEq/L (03/17/14 10:18 PM) CO2 [24-32 mEq/L] 10.3 mEq/L (03/17/14 10:18 PM) AGAP [10.0-20.0 mEq/L] CHEM PANEL 1 2 3 Most recent to oldest [Reference Range]: 1.1 mg/dL (03/17/14 10:18 PM) Creatinine Lvl [0.5-1.4 mg/dL] 66 mL/min/1.73m2 2 *NA* (03/17/14 10:18 PM) eGFR 18 mg/dL (03/17/14 10:18 PM) BUN [7-22 mg/dL] 16 (03/17/14 10:18 PM) B/C Ratio [6-25] 121 mg/dL 3 *HI* (03/17/14 10:18 PM) Glucose Lvl [70-99 mg/dL] 7.0 g/dL (03/17/14 10:18 PM) Total Protein [6.4-8.4 g/dL] 3.5 g/dL (03/17/14 10:18 PM) Albumin Lvl [3.5-5.0 g/dL] 3.5 g/dL (03/17/14 10:18 PM) Globulin [2.0-4.0 g/dL] 1.0 (03/17/14 10:18 PM) A/G Ratio [0.7-1.6] 9.0 mg/dL (03/17/14 10:18 PM) Calcium Lvl [8.5-10.5 mg/dL] 33 unit/L (03/17/14 10:18 PM) ALT [0-65 unit/L] 31 unit/L (03/17/14 10:18 PM) AST [0-37 unit/L] 130 unit/L (03/17/14 10:18 PM) Alk Phos [39-136 unit/L] 0.4 mg/dL (03/17/14 10:18 PM) Bili Total [0.2-1.3 mg/dL] 181 unit/L (03/17/14 10:18 PM) Lipase Lvl [73-393 unit/L] 2Result Comment: The eGFR is calculated using [...] from the National Kidney Disease Education Program ( NKDEP) which additionally recommends that when the eGFR is used in patients with extremes of body mass index for purposes of drug dosing, the eGFR should be mul tiplied by the estimated BMI. 3Interpretive Data: Adult reference range values reflect the clinical guidelines of the [place] [employer]. ENDOCRINOLOGY 1 2 3 Most recent to oldest [Reference Range]: Negative *NA* (03/17/14 10:18 PM) S Preg [Negative] URINE AND STOOL 1 2 3 Most recent to oldest [Reference Range]: Clear (03/17/14 11:11 PM) UA Turbidity [Clear] Yellow *NA* (03/17/14 11:11 PM) UA Color [Yellow] 5.0 (03/17/14 11:11 PM) UA pH [5.0-8.0] 1.024 (03/17/14 11:11 PM) UA Spec Grav [<=1.030] Negative mg/dL *NA* (03/17/14 11:11 PM) UA Glucose [Negative mg/dL] Negative (03/17/14 11:11 PM) UA Blood [Negative] Negative mg/dL *NA* (03/17/14 11:11 PM) UA Ketones [Negative mg/dL] Negative mg/dL (03/17/14 11:11 PM) UA Protein [Negative mg/dL] 2.0 mg/dL *HI* (03/17/14 11:11 PM) UA Urobilinogen [0.1-1.0 mg/dL] Negative *NA* (03/17/14 11:11 PM) UA Bili [Negative] Moderate *ABN* (03/17/14 11:11 PM) UA Leuk Est [Negative] Negative (03/17/14 11:11 PM) UA Nitrite [Negative] 4 /HPF (03/17/14 11:11 PM) UA WBC [0-5 /HPF] 4 /HPF *HI* (03/17/14 11:11 PM) UA RBC [0-2 /HPF] Occasional /HPF *NA* (03/17/14 11:11 PM) UA Bacteria [None Seen /HPF] Occasional /LPF *NA* (03/17/14 11:11 PM) UA Sq Epi [Few /LPF] Few /LPF *NA* (03/17/14 11:11 PM) UA Mucus [None Seen /LPF] HEMATOLOGY 1 2 3 Most recent to oldest [Reference Range]: 11.3 K/CMM *HI* (03/17/14 10:18 PM) WBC [3.7-10.4 K/CMM] 3.93 M/CMM *LOW* (03/17/14 10:18 PM) RBC [4.20-5.40 M/CMM] 12.5 g/dL (03/17/14 10:18 PM) Hgb [12.0-16.0 g/dL] 38.3 % (03/17/14 10:18 PM) Hct [36.0-48.0 %] 97.3 fL (03/17/14 10:18 PM) MCV [80.0-98.0 fL] 31.9 pg *HI* (03/17/14 10:18 PM) MCH [27.0-31.0 pg] 32.8 g/dL (03/17/14 10:18 PM) MCHC [32.0-36.0 g/dL] 13.2 % (03/17/14 10:18 PM) RDW [11.5-14.5 %] 235 K/CMM (03/17/14 10:18 PM) Platelet [133-450 K/CMM] 8.7 fL (03/17/14 10:18 PM) MPV [7.4-10.4 fL] 74.9 % (03/17/14 10:18 PM) Segs [45.0-75.0 %] 17.9 % *LOW* (03/17/14 10:18 PM) Lymphocytes [20.0-40.0 %] 5.0 % (03/17/14 10:18 PM) Monocytes [2.0-12.0 %] 1.7 % (03/17/14 10:18 PM) Eosinophils [0.0-4.0 %] 0.5 % (03/17/14 10:18 PM) Basophils [0.0-1.0 %] 8.5 K/CMM *HI* (03/17/14 10:18 PM) Segs-Bands # [1.5-8.1 K/CMM] 2.0 K/CMM (03/17/14 10:18 PM) Lymphocytes # [1.0-5.5 K/CMM] 0.6 K/CMM (03/17/14 10:18 PM) Monocytes # [0.0-0.8 K/CMM] 0.2 K/CMM (03/17/14 10:18 PM) Eosinophils # [0.0-0.5 K/CMM] 0.1 K/CMM (03/17/14 10:18 PM) Basophils # [0.0-0.2 K/CMM] 13.0 seconds (03/18/14 3:26 AM) PT [12.0-14.7 seconds] 0.98 4 (03/18/14 3:26 AM) INR [0.85-1.17] 31.1 seconds 5 (03/18/14 3:26 AM) PTT [22.9-35.8 seconds] 4Interpretive Data: RECOMMENDED RANGES FOR PROTIME INR: 2.0-3.0 for most medical and surgical thromboembolic states. 2.5-3.5 for artificial heart valves and recurrent embolism. INR SHOULD BE USED ONLY FOR PATIENTS ON STABLE ANTICOAGULANT THERAPY. 5Interpretive Data: Heparin Therapeutic Range: 57 - 92 Seconds Medications Administered During Your Visit No data available for this section Immunizations Vaccine Date Refusal Reason influenza virus vaccine, inactivated 03/18/14 Social History Social History Type Response Substance Abuse Use: Past, Type: Marijuana Sexual Sexually active: Yes Exercise Exercise type: Walking Employment/School 1 Alcohol Use: Past, Type: Beer, Type: Wine, Type: Liquor2 Smoking Status Former smoker, Type: Cigarettes, Exposure to Tobacco Smoke None, Cigarette Smoking Last 365 Days No, Reg Smoking Cessation Counseling No 1none 2not with Assessment and Plan Extracted from: Title: Clinical Document Author: Alfonso Barba MD Date: 03/18/14 Post Operative Procedure Note A complete detailed Operative Report must follow within 24 hours of the procedure. Pre-Operative Diagnosis: 1. acute cholecystitis, 2. steatohepatitis Post-Operative Diagnosis: same Surgeon/Endoscopist/Physician(s): Alfonso Barba MD Learning Designer(s): Procedure Performed: 1. Laparoscopic cholecystectomy, 2. Wedge liver biopsy Estimated Blood Loss: Min Specimens Removed: 1. gallbladder, 2. wedge liver biopsy Findings of the Procedure: Evidence of chronic inflammation of the gallbladder Dictation ID for complete detailed Operative Report:: #[id number]
--- OUTSIDE RECORDS SUMMARY | 2018-07-11 17:00 | XMS REPORT | Summary of Care ---
Author Organization Unknown Address Unknown Phone Unavailable Encounter TAMERA Early(PAGE) [id number] Date(s): 01/05/14 - 01/05/14 [facility] [address] Discharge Disposition: Home Physician Attending: Evelin Mcintosh MD Physician Admitting: Evelin Mcintosh MD Reason for Visit RUQ PAIN Vital Signs Most recent to 1 2 oldest [Reference Range]: Height 167.64 cm (01/05/14 1:04 AM) Temperature Oral 97.8 DegF [96.4-99.1 DegF] (01/05/14 1:13 AM) Systolic Blood 133 mmHg 130 mmHg Pressure [90-140 (01/05/14 2:00 AM) (01/05/14 1:13 AM) mmHg] Diastolic Blood 62 mmHg 59 mmHg Pressure [60-90 (01/05/14 2:00 AM) *LOW* mmHg] (01/05/14 1:13 AM) Respiratory Rate 16 BRMIN [14-20 BRMIN] (01/05/14 1:13 AM) Peripheral Pulse 67 bpm Rate [60-100 bpm] (01/05/14 1:13 AM) Weight 135.455 kg (01/05/14 1:04 AM) Body Mass Index 48.2 m2 (01/05/14 1:04 AM) Problem List Condition Effective Dates Status Health Status Informant Diabetes, Active gestational(Confirme d) Gestational diabetes Active mellitus, class A>1<(Confirmed) (Confirmed) 03/23/13 Active (Confirmed) 02/16/99 - 1999 Resolved (Confirmed) 03/10/02 - 12/01/02 Resolved Allergies, Adverse Reactions, Alerts Substance Reaction Severity Status NKDA Active Medications No Known Medications Medications Administered During Your Visit No data available for this section Immunizations No data available for this section Procedures Procedure Type Body Site Date of Procedure Related Diagnosis Lymph node operation Operation on tonsils Social History Social History Type Response Substance [...] Plan Extracted from: Title: Clinical Document Author: Evelin Mcintosh MD Date: 01/05/14 Ms Davis presents with complaints of abdominal pain. She has had this pain once previously but it is now more intense. It is 7/10 in intensity. It began after krissy had dinner - pizza. She denies nausea or vomiting. She has been getting care at [facility]. Her has been complicated by diet controlled gestational diabetes. By the time I examined her, her pain had resolved. Obhx: SAB x 1, x 2 PMH: none PSH: adenoids, lymph node removal Meds: PNV Allergies: NKDA Exam BP 133/62 HR 67 FHT: category 1 FHT [place]: some contractions Gen: NAD Abd: gravid, soft, NT Sono: gallstones with gallbladder sludge 33 y/o at 38.3 weeks with cholelithiasis -Pain has resolved. D/c home with diet precautions. -F/u with [facility] clinic within the next week
--- OUTSIDE RECORDS SUMMARY | 2018-07-11 17:01 | XMS REPORT | Clinical Summary ---
Author Author [facility] Organization [facility] Address Unknown Phone Unavailable Care Team Providers Care Dehydrogenation Converter Helper Name Role Phone PCP Unavailable Allergies Comments Active Allergy Reactions Severity Noted Date Tramadol 02/18/2018 Medications End Date Status Medication Sig Dispensed Refills Start Date Active DULoxetine (CYMBALTA) 60 Take 1 30 capsule 2 201 mg delayed release capsule by 8 capsuleIndications: JUAN mouth daily. (generalized anxiety disorder) 03/18/2018 Discontinued escitalopram oxalate Take 20 mg [...] remission, capsules unspecified whether every recurrent morning. Active Problems Not on file Encounters Care Team Description Date Type Specialty Laura Jackson MD Arrived 04/22/2018 Office Visit Psychiatry 04/22/2018 Travel Laura Jackson MD JUAN (generalized anxiety disorder) (Primary Dx) 03/18/2018 Office Visit Psychiatry Laura Jackson MD JUAN (generalized anxiety disorder) (Primary Dx); Major depressive disorder in full remission, unspecified whether recurrent 02/18/2018 Office Visit Psychiatry after 04/21/2017 Social History Date Tobacco Use Types Packs/Day Years Used Never Assessed Sex Assigned at Date Recorded Not on file Industry Job Start Date Occupation Not on file Not on file Not on file Travel End Travel History Travel Start No recent travel history available. Last Filed Vital Signs Time Taken Vital Sign Reading 04/22/2018 10:42 AM TIMING ADJUSTER Blood Pressure 122/72 04/22/2018 10:42 AM TIMING ADJUSTER Pulse 72 04/22/2018 10:42 AM TIMING ADJUSTER Temperature 36.3 C (97.3 F) 04/22/2018 10:42 AM TIMING ADJUSTER Respiratory Rate 18 04/22/2018 10:42 AM TIMING ADJUSTER Oxygen Saturation 96% - Inhaled Oxygen - Concentration 04/22/2018 10:42 AM TIMING ADJUSTER Weight 143.8 kg (317 lb) 04/22/2018 10:42 AM TIMING ADJUSTER Height 167.6 cm (5' 6") 04/22/2018 10:42 AM TIMING ADJUSTER Body Mass Index 51.17 Plan of Treatment Health Maintenance Due Date Last Done Comments Cervical Cancer Scrn (3 09/27/2000 Yrs) IMM Influenza Seasonal 01/18/2018 Oct to June (>/=19 yrs) Results Not on fileafter 04/21/2017 Insurance Type Payer Benefit Subscriber ID Effective Phone Address Plan / Dates Group [facility] xxxxxxx 2017-P [phone] [address] [place] resent [id number] [place], [place] [address] HCHD PLAN HCHD PLAN xxxxxxx 2017-8 [address] [place] [address]
--- OUTSIDE RECORDS SUMMARY | 2018-07-11 17:01 | XMS REPORT ---
Author Author [facility] Address Unknown Phone Unavailable Care Team Providers Care Wrestling Coach Name Role Phone Unavailable Unavailable Problems This patient has no known problems. Allergies, Adverse Reactions, Alerts This patient has no known allergies or adverse reactions. Medications This patient has no known medications. Encounters Start Date/Time End Date/Time Encounter Type Admission Type Attending [facility] Care Department Encounter ID 2018-06-01 00:00:00 2018-06-01 00:00:00 Outpatient [facility] [id number] 2018-04-22 10:41:51 2018-04-22 10:41:51 Outpatient [facility] [id number] 2018-04-09 00:00:00 2018-04-09 00:00:00 Outpatient [facility] [id number] 2018-03-18 15:38:32 2018-03-18 15:38:32 Outpatient [facility] [id number] 2018-02-18 15:45:38 2018-02-18 15:45:38 Outpatient [facility] [id number]
--- OUTSIDE RECORDS SUMMARY | 2018-07-11 17:01 | XMS REPORT | Clinical Summary ---
Author Author [facility] Organization [facility] Address Unknown Phone Unavailable Care Team Providers Care Deputy County Clerk Name Role Phone PCP Unavailable Allergies Comments [...] whether recurrent 02/18/2018 Office Visit Psychiatry after 05/10/2017 Social History Date Tobacco Use Types Packs/Day Years Used Never Assessed Sex Assigned at Date Recorded Not on file Industry Job Start Date Occupation Not on file Not on file Not on file Travel End Travel History Travel Start No recent travel history available. Last Filed Vital Signs Time Taken Vital Sign Reading 04/22/2018 10:42 AM TOBACCO PREVENTION HEALTH EDUCATOR Blood Pressure 122/72 04/22/2018 10:42 AM TOBACCO PREVENTION HEALTH EDUCATOR Pulse 72 04/22/2018 10:42 AM TOBACCO PREVENTION HEALTH EDUCATOR Temperature 36.3 C (97.3 F) 04/22/2018 10:42 AM TOBACCO PREVENTION HEALTH EDUCATOR Respiratory Rate 18 04/22/2018 10:42 AM TOBACCO PREVENTION HEALTH EDUCATOR Oxygen Saturation 96% - Inhaled Oxygen - Concentration 04/22/2018 10:42 AM TOBACCO PREVENTION HEALTH EDUCATOR Weight 143.8 kg (317 lb) 04/22/2018 10:42 AM TOBACCO PREVENTION HEALTH EDUCATOR Height 167.6 cm (5' 6") 04/22/2018 10:42 AM TOBACCO PREVENTION HEALTH EDUCATOR Body Mass Index 51.17 Plan of Treatment Care Team Description Date Type Specialty Flavia Colby MD [address] [place], [place] [id number] 06/01/2018 Office Visit Psychiatry Health Maintenance Due Date Last Done Comments Cervical Cancer Scrn (3 09/27/2000 Yrs) IMM Influenza Seasonal 01/18/2018 Oct to June (>/=19 yrs) Results Not on fileafter 05/10/2017 Insurance Type Payer Benefit Subscriber ID Effective Phone Address Plan / Dates Group [facility] xxxxxxx 2017-P [phone] [place] resent [id number] [place], [place] [address] [facility] xxxxxxxxxxxx 2018-3 [id number] CHOICE [facility] [place] [address] [facility] xxxxxxxxxxxx 2018-P [phone] [address] resent [phone] [place] [address] HCHD PLAN HCHD PLAN xxxxxxx 2017-8 [address] [place] [address]
--- OUTSIDE RECORDS SUMMARY | 2018-07-11 17:01 | XMS REPORT | Clinical Summary ---
Author Author [facility] Organization [facility] Address Unknown Phone Unavailable Care Team Providers Care Dairy Cattle Farm Manager Name Role Phone PCP Unavailable Allergies [...] whether recurrent 02/18/2018 Office Visit Psychiatry after 04/05/2017 Social History Date Tobacco Use Types Packs/Day Years Used Never Assessed Sex Assigned at Date Recorded Not on file Industry Job Start Date Occupation Not on file Not on file Not on file Travel End Travel History Travel Start No recent travel history available. Last Filed Vital Signs Time Taken Vital Sign Reading 03/18/2018 3:38 PM STATIONARY EQUIPMENT MECHANIC Blood Pressure 136/78 03/18/2018 3:38 PM STATIONARY EQUIPMENT MECHANIC Pulse 108 03/18/2018 3:38 PM STATIONARY EQUIPMENT MECHANIC Temperature 36.6 C (97.9 F) 03/18/2018 3:38 PM STATIONARY EQUIPMENT MECHANIC Respiratory Rate 20 03/18/2018 3:38 PM STATIONARY EQUIPMENT MECHANIC Oxygen Saturation 95% - Inhaled Oxygen - Concentration 03/18/2018 3:38 PM STATIONARY EQUIPMENT MECHANIC Weight 143.8 kg (317 lb) 03/18/2018 3:38 PM STATIONARY EQUIPMENT MECHANIC Height 167.6 cm (5' 6") 03/18/2018 3:38 PM STATIONARY EQUIPMENT MECHANIC Body Mass Index 51.17 Plan of Treatment Care Team Description Date Type Specialty [place] [address] [phone] 04/09/2018 Office Visit Psychiatry Laura Jackson MD [address] [place] [address] [phone] 04/22/2018 Office Visit Psychiatry Health Maintenance Due Date Last Done Comments Cervical Cancer Scrn (3 09/27/2000 Yrs) IMM Influenza Seasonal 01/18/2018Jan to June (>/=19 yrs) Results Not on fileafter 04/05/2017 Insurance Type Payer Benefit Subscriber ID Effective Phone Address Plan / Dates Group [facility] [place] xxxxxxx 2017-P [phone] resent [id number] [place], [place] [address] HCHD PLAN HCHD PLAN xxxxxxx 2017-8 [address] [place] [address]
--- OUTSIDE RECORDS SUMMARY | 2018-07-11 17:01 | XMS REPORT | Clinical Summary ---
Author Author [facility] Organization [facility] Address Unknown Phone Unavailable Care Team Providers Care Transit Mixer Operator Name Role Phone PCP Unavailable Allergies Active Allergy Reactions Severity Noted Date Comments Tramadol 02/18/2018 Current Medications Prescription Sig. Disp. Refills Start End Date Status Date escitalopram oxalate Take 20 mg by mouth Active (LEXAPRO) 20 mg daily. tabletIndications: JUAN (generalized anxiety disorder), Major depressive disorder in full remission, unspecified whether recurrent DULoxetine (CYMBALTA) 30 Take 1 capsule by mouth 60 capsule 2 02/19/20 Active mg delayed release every morning for 1 week, 18 capsuleIndications: JUAN then increase to 2 (generalized anxiety capsules every morning. disorder), Major depressive disorder in full remission, unspecified whether recurrent Active Problems Not on file Encounters Date Type Specialty Care Team Description 02/18/2018 Office Visit Psychiatry Laura Jackson MD JUAN (generalized anxiety disorder) (Primary Dx); Major depressive disorder in full remission, unspecified whether recurrent after 02/17/2017 Social History Tobacco Use Types Packs/Day Years Used Date Never Assessed Sex Assigned at Date Recorded Not on file Last Filed Vital Signs Vital Sign Reading Time Taken Blood Pressure 121/57 02/18/2018 2:56 PM CDT Pulse 78 02/18/2018 2:56 PM CDT Temperature 36.6 C (97.9 F) 02/18/2018 2:56 PM CDT Respiratory Rate 20 02/18/2018 2:56 PM CDT Oxygen Saturation 97% 02/18/2018 2:56 PM CDT Inhaled Oxygen - - Concentration Weight 145.2 kg (320 lb) 02/18/2018 2:56 PM CDT Height 167.6 cm (5' 6") 02/18/2018 2:56 PM CDT Body Mass Index 51.65 02/18/2018 2:56 PM CDT Plan of Treatment Date Type Specialty Care Team Description 03/18/2018 Office Visit Psychiatry Laura Jackson MD [address] [place], [place] [phone] 04/09/2018 Office Visit Psychiatry [place] [address] Health Maintenance Due Date Last Done Comments Cervical Cancer Scrn (3 09/27/2000 Yrs) IMM Influenza Seasonal 01/18/2018Jan to June (>/=19 yrs) Results Not on fileafter 02/17/2017
--- OUTSIDE RECORDS SUMMARY | 2018-07-11 17:01 | XMS REPORT | Clinical Summary ---
Author Author [facility] Organization [facility] Address Unknown Phone Unavailable Care Team Providers Care Smalltalk Developer Name Role Phone PCP Unavailable Allergies Active [...] Encounters Date Type Specialty Care Team Description 02/23/2018 Pharmacy Visit 02/19/2018 Pharmacy Visit 02/18/2018 Office Visit Psychiatry Laura Jackson MD JUAN (generalized anxiety disorder) (Primary Dx); Major depressive disorder in full remission, unspecified whether recurrent after 03/17/2017 Social History Tobacco Use Types Packs/Day Years [...] 03/18/2018 Office Visit Psychiatry Laura Jackson MD Arrived [address] [place] [address] [phone] 04/09/2018 Office Visit Psychiatry [place] [address] Health Maintenance Due Date Last Done Comments Cervical Cancer Scrn (3 09/27/2000 Yrs) IMM Influenza Seasonal 01/18/2018 Oct to June (>/=19 yrs) Results Not on fileafter 03/17/2017
[2018-07-11] MEDS ORDERED: IBUPROFEN 600 MG TAB PO NR (17:30)
--- NOTE | 2018-07-11 17:57 | Diagnostic Imaging Report ---
Exam: Left elbow forearm 3 views History: Pain Comparison: None. Findings: Joint effusion. Minimally displaced radial neck fracture. Impression: Minimally displaced radial neck fracture. Signed by: Dr. Hero Smiley M.D. on 07/11/2018 5:54 PM
[2018-07-11] MEDS ORDERED: HYDROCODONE/APAP 7.5MG-325MG 1 EA TAB PO NR (18:50)
== END 2018-07-11 19:10 | disposition home or self-care (01) ==
LOC: ER 16:57
DX: S52.125A Nondisplaced fracture of head of left radius, initial encounter for closed fracture (principal); W01.0XXA Fall on same level from slipping, tripping and stumbling without subsequent striking against object, initial encounter; Y92.008 Other place in unspecified non-institutional (private) residence as the place of occurrence of the external cause; F41.9 Anxiety disorder, unspecified; E66.9 Obesity, unspecified
CPT/HCPCS: 99284

== ENCOUNTER 2018-11-27 08:36 | Emergency (ER) | payer OTHER ==
[~2018-11-27] VITALS: Ht 165.1 cm; Wt 145.1 kg
--- OUTSIDE RECORDS SUMMARY | 2018-11-27 08:39 | XMS REPORT | Clinical Summary ---
Author Author [facility] Organization [facility] Address Unknown Phone Unavailable Care Team Providers Care Medical Office Receptionist Assistant Name Role Phone PCP Unavailable Allergies Comments [...] whether recurrent 02/18/2018 Office Visit Psychiatry after 11/26/2017 Social History Date Tobacco Use Types Packs/Day Years Used Never Assessed Sex Assigned at Date Recorded Not on file Industry Job Start Date Occupation Not on file Not on file Not on file Travel End Travel History Travel Start No recent travel history available. Last Filed Vital Signs Reading Time Taken Comments Vital Sign 122/72 04/22/2018 10:42 AM YOUTH MINISTRY DIRECTOR Blood Pressure 72 04/22/2018 10:42 AM YOUTH MINISTRY DIRECTOR Pulse 36.3 C (97.3 F) 04/22/2018 10:42 AM YOUTH MINISTRY DIRECTOR Temperature 18 04/22/2018 10:42 AM YOUTH MINISTRY DIRECTOR Respiratory Rate 96% 04/22/2018 10:42 AM YOUTH MINISTRY DIRECTOR Oxygen Saturation - - Inhaled Oxygen Concentration 143.8 kg (317 lb) 04/22/2018 10:42 AM YOUTH MINISTRY DIRECTOR Weight 167.6 cm (5' 6") 04/22/2018 10:42 AM YOUTH MINISTRY DIRECTOR Height 51.17 04/22/2018 10:42 AM YOUTH MINISTRY DIRECTOR Body Mass Index Plan of Treatment Health Maintenance Due Date Last Done Comments Cervical Cancer Scrn (3 09/27/2000 Yrs) IMM Influenza Seasonal 01/18/2019Jan to June (>/=19 yrs) Results Not on fileafter 11/26/2017 Insurance Type Payer Benefit Subscriber ID Effective Phone Address Plan / Dates Group [facility] xxxxxxx 2017-P [phone] [address] resent [id number] [place], [place] [address] [facility] xxxxxxxxxxxx 2018-8 [address] CHOICE [facility] E [address] [facility] xxxxxxxxxxxx 2018-P [phone] [address] resent [phone] [place] [address]
--- OUTSIDE RECORDS SUMMARY | 2018-11-27 08:39 | XMS REPORT | Summary of Care ---
Author Author [facility] Organization [facility] Address Unknown Phone Unavailable Care Team Providers Care Pick Up Man Name Role Phone Mane Erazo MD PCP Reason for Referral * (Routine) Referred By Contact Referred To Contact Status Reason Specialty Diagnoses / Procedures Mane Erazo MD [address] [place] [phone] [facility] Manager Grocery [address] [place] [phone] New Request Physical Therapy Diagnoses Ear pressure, left Dizziness BPPV (benign paroxysmal positional vertigo), left P rocedures CONSULT/REFERRAL PHYSICAL THERAPY Reason for Visit * Reason Comments Establish Care Medicare Annual Wellness Ear Problem left ear X1 week; patient seen at Urgent Care in [place] on 11-18-2018 Encounter Details Care Team Description Date Type Department Felisha Duncan MD [address] [place] [address] [id number] [place] [address] Mane Erazo MD [address] [place] [phone] Ear pressure, left (Primary Dx); Dizziness; BPPV (benign paroxysmal positional vertigo), left 11/23/2018 Office Visit [facility] Family Medicine- [address] [phone] Allergies Comments Active Allergy Reactions Severity Noted Date Tramadol Itching, High 11/23/2018 Nausea and/or Vomiting documented as of this encounter (statuses as of 11/23/2018) Medications End Date Status Medication Sig Dispensed Refills Start Date Active meclizine 25 mg Take 1 tablet 7 tablet 0 tabletIndications: Ear by mouth 3 9 pressure, left, (three) times Dizziness, BPPV (benign daily as paroxysmal positional needed for vertigo), left Dizziness. documented as of this encounter (statuses as of 11/23/2018) Active Problems Not on filedocumented as of this encounter (statuses as of 11/23/2018) Social History Date Tobacco Use Types Packs/Day Years Used Never Smoker Drinks/Week oz/Week Comments Alcohol Use Yes Sex Assigned at Date Recorded Not on file Industry Job Start Date Occupation Not on file Not on file Not on file Travel End Travel History Travel Start No recent travel history available. documented as of this encounter Last Filed Vital Signs Reading Time Taken Comments Vital Sign 111/71 11/23/2018 9:37 AM CDT Blood Pressure 64 11/23/2018 9:37 AM CDT Pulse 35.8 C (96.5 F) 11/23/2018 9:37 AM CDT Temperature 16 11/23/2018 9:37 AM CDT Respiratory Rate 98% 11/23/2018 9:37 AM CDT Oxygen Saturation - - Inhaled Oxygen Concentration 143.2 kg (315 lb 11.2 oz) 11/23/2018 9:37 AM CDT Weight 165.1 cm (5' 5") 11/23/2018 9:37 AM CDT Height 52.54 11/23/2018 9:37 AM CDT Body Mass Index documented in this encounter Progress Notes * Tien Mackey MA - 11/23/2018 9:30 AM CDT Kristen Montenegro is a 38 year old female Chief Complaint Patient presents with [facility] Medicare Annual Wellness Ear Problem left ear X1 week; patient seen at Urgent Care in [place] on 11-18-2018 * Mane Erazo MD - 11/23/2018 9:30 AM CDT Family Medicine Clinic Visit Date: 11/23/2018 CC: No chief complaint on file. HPI: Kristen Montenegro is a 38 year old female who presents L ear pressure and dizzines s Pt seen in urgent care 5 days ago and given a course of amoxicillin and Methylpr ednisone for possible ear infection, which has not alleviated the symptoms Onset: 9 days Location: left ear Duration:consistent Character: feels like room spinning to the left Alleviating factors: none Aggravating factors: lying down and turning head to the left Radiation: none Timing: w/ head movement Associated Symptoms: (+): nausea, dizziness (-): fever, ear pain, ear drainage, headache, cough, visual changes, swollen/painful lymph nodes, tinnitus, rhinorrhea, stuffiness, allergies Home Medications: No outpatient medications have been marked as taking for the 11/23/18 encounter (A ppointment) with Mane Erazo MD. Allergies: Allergies not on file Histories: No past medical history on file. No past surgical history on file. No family history on file. Social History Tobacco Use Smoking status: Not on file Substance Use Topics Alcohol use: Not on file Drug use: Not on file Review of Systems Constitutional: Negative for chills, fatigue and fever. HENT: Positive for ear pain (L ear fullness). Negative for congestion, rhinorrhe a and sore throat. Eyes: Negative for visual disturbance. Respiratory: Negative for cough, shortness of breath and wheezing. Cardiovascular: Negative for chest pain. Gastrointestinal: Positive for nausea. Negative for abdominal pain, constipation , diarrhea and vomiting. Genitourinary: Negative for dysuria and hematuria. Musculoskeletal: Negative for myalgias. Skin: Negative for rash. Neurological: Positive for dizziness. Negative for headaches. There were no vitals taken for this visit. Physical Exam Constitutional: She appears well-developed and well-nourished. No distress. HENT: Nose: Nose normal. Mouth/Throat: Oropharynx is clear and moist. No oropharyngeal exudate. R ear occluded with cerumen, s/p ear irrigation TM normal L ear ext canal and TM normal No tenderness to palpation with traction on pinna bilaterally Reproducible dizziness when laid back and head turned toward the left, no nystag mus apprecaiated Eyes: Pupils are equal, round, and reactive to light. Conjunctivae and EOM are n ormal. Right eye exhibits no discharge. Left eye exhibits no discharge. No scler al icterus. Cardiovascular: Normal rate and regular rhythm. Pulmonary/Chest: Effort normal. Assessment and Plan: Kristen Montenegro is a 38 year old female presents with the followin. Ear pressure, left 2. Dizziness 3. BPPV (benign paroxysmal positional vertigo), left Given pt's history and PE findings, pt's condition is likely 2/2 BPPV. Will send patient to PT for denita-hallpike maneuver. Will send with Meclizine for prn dizzi ness. - meclizine 25 mg tablet; Take 1 tablet by mouth 3 (three) times daily as needed for Dizziness. Dispense: 7 tablet; Refill: 0 - CONSULT/REFERRAL PHYSICAL THERAPY Return in about 2 weeks (around 12/07/2018) for Physical. No future appointments. Plan discussed with patient. Patient understands medications, discussed side eff ects, and medications reconciled. Barriers for compliance assessed and addresse d. Counseled patient on treatment plan. Patient voices understanding of the suyapa n and is available on [employer]Medict. The patient was provided the after visit summary (AVS) documenting the visit, pertinent patient instructions and follow-up recomm endations. Pt seen with Renato Pate MS3 Pt discussed with Dr. Duncan Mane Erazo MD [facility] Medicine PGY-3 documented in this encounter Plan of Treatment Care Team Description Date Type Specialty Mane Erazo MD [address] [place] [address]. [place] [phone] 12/10/2018 Office Visit Family Medicine Health Maintenance Due Date Last Done Comments DTaP,Tdap,and Td Vaccines 09/27/1998 (1 - Tdap) PAP SMEAR 09/27/2000 INFLUENZA VACCINE 12/19/2018 PNEUMOCOCCAL 0-64 YEARS Aged Out No longer eligible based COMBINED SERIES on patient's age to complete this topic documented as of this encounter Results Not on filedocumented in this encounter Visit Diagnoses Diagnosis Ear pressure, left - Primary Dizziness Dizziness and giddiness BPPV (benign paroxysmal positional vertigo), left documented in this encounter Insurance Type Payer Benefit Subscriber ID Effective Phone Address Plan / Dates Group [facility] [place] xxxxxxxxx 2018-P PLAN - MANAGED MEDICAID CHILDRENS resent HEALTH documented as of this encounter
--- OUTSIDE RECORDS SUMMARY | 2018-11-27 08:39 | XMS REPORT | Summary of Care ---
Author Author [facility] - Health Organization [facility] - Health Address Unknown Phone Unavailable Care Team Providers Care Recreational Sports Director Name Role Phone Mane Erazo MD PCP Encounter Details Care Team Description Date Type Department Doctor Unassigned, [place] [address] [place] [phone] 11/23/2018 Orders Only [address] [address] Allergies Not on Filedocumented as of this encounter (statuses as of 11/23/2018) Medications Not on filedocumented as of this encounter [...] of this encounter Last Filed Vital Signs Not on filedocumented in this encounter Plan of Treatment Care Team Description Date Type Specialty Felisha Duncan MD [address] [place] [address] [id number] [place] [address] [phone] Mane Erazo MD [address] [place] [address]. [place] [phone] Arrived 11/23/2018 Office Visit Family Medicine Health Maintenance Due Date Last Done Comments DTaP,Tdap,and Td Vaccines 09/27/1998 (1 - Tdap) PAP SMEAR 09/27/2000 INFLUENZA VACCINE 12/19/2018 PNEUMOCOCCAL 0-64 YEARS Aged Out No longer eligible based COMBINED SERIES on patient's age to complete this topic documented as of this encounter Procedures Comments Procedure Name Priority Date/Time Associated Diagnosis CONSENT/REFUSAL FOR Routine 11/23/2018 DIAGNOSIS AND TREATMENT 9:29 AM CDT ASSIGNMENT OF BENEFITS Routine 11/23/2018 9:28 AM CDT documented in this encounter Results Not on filedocumented in this encounter Insurance Type Payer Benefit Subscriber ID Effective Phone Address Plan / Dates Group [place] [facility] [place] xxxxxxxxx 2018-P PLAN - MANAGED MEDICAID [facility] documented as of this encounter
--- OUTSIDE RECORDS SUMMARY | 2018-11-27 08:39 | XMS REPORT | Summary of Care ---
Author Author [facility] - Health Organization [facility] - Health Address Unknown Phone Unavailable Care Team Providers Care Supervisor Nuclear Medicine Name Role Phone Mane Erazo MD PCP Reason for Referral * (Routine) Referred By Contact Referred To Contact Status Reason Specialty Diagnoses / Procedures Mane Erazo MD [address] [place] [phone] [facility] [employer] Machine Operator [address] [place] [phone] New Request Physical Therapy Diagnoses Ear pressure, left Dizziness BPPV (benign paroxysmal positional vertigo), left P rocedures CONSULT/REFERRAL PHYSICAL THERAPY Reason for Visit * Reason Comments Establish Care Medicare Annual Wellness Ear Problem left ear X1 week; patient seen at Urgent Care in [place] on 11-18-2018 Encounter Details Care Team Description Date Type Department Felisha Duncan MD [address] [place] [address] [id number] [place] [address] Mane Erazo MD [address] [place] [phone] Ear pressure, left (Primary Dx); Dizziness; BPPV (benign paroxysmal positional vertigo), left 11/23/2018 Office Visit [facility] Family Medicine- [address] [phone] Allergies Comments Active Allergy Reactions [...] old female Chief Complaint Patient presents with [facility] Care Medicare Annual Wellness Ear Problem left ear X1 week; patient seen at Urgent Care in [place] on 11-18-2018 * Mane Erazo MD - [...] the suyapa n and is available on [employer]. The patient was provided the after visit summary (AVS) documenting the visit, pertinent patient instructions and follow-up recomm endations. Pt seen with Renato Pate MS3 Pt discussed with Dr. Duncan Mane Erazo MD [facility] Medicine PGY-3 documented in this encounter Plan of Treatment Care Team Description Date Type Specialty Mane Erazo MD [address] [place] [address]. [place] [phone] 12/10/2018 Office Visit Family Medicine Health Maintenance [...]
--- OUTSIDE RECORDS SUMMARY | 2018-11-27 08:39 | XMS REPORT | Summary of Care ---
Author Author [facility] - Health Organization [facility] - Health Address Unknown Phone Unavailable Care Team Providers Care Heel Slicker Name Role Phone Mane Erazo MD PCP Reason for Referral * (Routine) Referred By Contact Referred To Contact Status Reason Specialty Diagnoses / Procedures Mane Erazo MD [address] [place] [phone] [facility] Silver Hollow[employer] Assembler [address] [place] [phone] New Request Physical Therapy Diagnoses Ear pressure, left Dizziness BPPV (benign paroxysmal positional vertigo), left P rocedures CONSULT/REFERRAL PHYSICAL THERAPY Reason for Visit * Reason Comments Establish Care Medicare Annual Wellness Ear Problem left ear X1 week; patient seen at Urgent Care in [place] on 11-18-2018 Encounter Details Care Team Description Date Type Department Felisha Duncan MD [address] [place] [address] [id number] [place] [address] Mane Erazo MD [address] [place] [phone] Ear pressure, left (Primary Dx); Dizziness; BPPV (benign paroxysmal positional vertigo), left 11/23/2018 Office Visit [facility] Family Medicine- [address] [phone] Allergies Comments Active Allergy Reactions [...] MA - 11/23/2018 9:30 AM CDT Kristen Montenergo is a 38 year old female Chief Complaint Patient presents with [facility] Medicare Annual Wellness Ear Problem left ear X1 week; patient seen at Urgent Care in [place] on 11-18-2018 * Mane Erazo MD - 11/23/2018 9:30 AM CDT Family Medicine Clinic Visit Date: 11/23/2018 CC: Establish Care; Medicare Annual Wellness; and Ear Problem (left ear X1 week ; patient seen at Urgent Care in [place] on 11-18-2018) HPI: Kristen Montenegro is a 38 year [...] nodes, tinnitus, rhinorrhea, stuffiness, allergies Home Medications: Outpatient Medications Marked as Taking for the 11/23/18 encounter (Office Visit) with Mane Erazo MD Medication Sig Dispense Refill meclizine 25 mg tablet Take 1 tablet by mouth 3 (three) times daily as neede d for Dizziness. 7 tablet 0 Allergies: Allergies Allergen Reactions Tramadol Itching and Nausea and/or Vomiting Histories: Past Medical History: Diagnosis Date Anxiety Depression Frequent headaches Past Surgical History: Procedure Laterality Date TONSILLECTOMY Family History Problem Relation Age of Onset Hypertension Mother Diabetes Mother Hypertension Father COPD (chronic obstructive pulmonary disease) Father Heart Paternal Uncle Hypertension Paternal Uncle Diabetes Paternal Uncle Colon Cancer Maternal Grandfather Social History Tobacco Use Smoking status: Never Smoker Substance Use Topics Alcohol use: Yes Drug use: Yes Types: Marijuana Review of Systems Constitutional: Negative for chills, [...] Neurological: Positive for dizziness. Negative for headaches. BP 111/71 (BP Location: Left arm, Patient Position: Sitting, BP CUFF SIZE: Adult Large) | Pulse 64 | Temp 35.8 C (96.5 F) (Axillary) | Resp 16 | Ht 5' 5" (1.651 m) | Wt 315 lb 11.2 oz (143.2 kg) | SpO2 98% | BMI 52.54 kg/m Physical Exam Constitutional: She appears well-developed and [...] the suyapa n and is available on [employer]. The patient was provided the after visit summary (AVS) documenting the visit, pertinent patient instructions and follow-up recomm endations. Pt seen with Renato Pate MS3 Pt discussed with Dr. Duncan Mane Erazo MD [facility], Family Medicine PGY-3 documented in this encounter Plan of Treatment Care Team Description Date Type Specialty Mane Erazo MD [address] [place] [phone] 12/10/2018 Office Visit Family Medicine Health Maintenance [...] [place] xxxxxxxxx 2018-P PLAN - MANAGED MEDICAID [facility] documented as of this encounter
--- OUTSIDE RECORDS SUMMARY | 2018-11-27 08:41 | XMS REPORT | Clinical Summary ---
Author Author [facility] Organization [facility] Address Unknown Phone Unavailable Care Team Providers Care Remote Sensing Specialist Name Role Phone PCP Unavailable Allergies [...] Comments Vital Sign 122/72 04/22/2018 10:42 AM CSR Blood Pressure 72 04/22/2018 10:42 AM CSR Pulse 36.3 C (97.3 F) 04/22/2018 10:42 AM CSR Temperature 18 04/22/2018 10:42 AM CSR Respiratory Rate 96% 04/22/2018 10:42 AM CSR Oxygen Saturation - - Inhaled Oxygen Concentration 143.8 kg (317 lb) 04/22/2018 10:42 AM CSR Weight 167.6 cm (5' 6") 04/22/2018 10:42 AM CSR Height 51.17 04/22/2018 10:42 AM CSR Body Mass Index Plan of Treatment Health Maintenance Due Date Last Done Comments Cervical Cancer Scrn (3 09/27/2000 Yrs) IMM Influenza Seasonal 01/18/2019Jan to June (>/=19 yrs) Results Not on fileafter 11/26/2017 Insurance Type Payer Benefit Subscriber ID Effective Phone Address Plan / Dates Group [facility] xxxxxxx 2017-P [phone] [address] [id number] [place], [place] [phone] [facility] xxxxxxxxxxxx 2018-[id number] CHOICE [facility] E [phone] [facility] xxxxxxxxxxxx 2018-P [phone] resent [phone] [place] [phone]
== END 2018-11-27 09:02 | disposition left against medical advice (07) ==
LOC: ER 08:39
DX: M54.9 Dorsalgia, unspecified (principal)

== ENCOUNTER 2021-02-06 17:28 | Emergency (ER) | payer OTHER ==
[~2021-02-06] VITALS: Ht 167.6 cm; Wt 142.9 kg
[2021-02-06] MEDS ORDERED: ONDANSETRON HCL INJ 2MG/ML 2ML 2 MG/ML VIAL IV STA (18:02)
[2021-02-06] MEDS ORDERED: FAMOTIDINE 20 MG/2 ML VIAL IV STA (18:02)
[2021-02-06] MEDS ORDERED: SODIUM CHLORIDE 0.9% 1000ML 1,000 ML IV SCH (18:15)
[2021-02-06] MEDS ORDERED: SODIUM CHLORIDE 0.9% 1000ML 1,000 ML ONE (18:46)
[2021-02-06] MEDS ORDERED: ONDANSETRON HCL INJ 2MG/ML 2ML 2 MG/ML VIAL ONE (18:46)
[2021-02-06] MEDS ORDERED: FAMOTIDINE 20 MG/2 ML VIAL IV ONE (18:46)
[2021-02-06] MEDS ORDERED: ONDANSETRON ODT4 MG PO (19:44)
[2021-02-06] MEDS ORDERED: FAMOTIDINE40 MG PO (19:46)
== END 2021-02-06 20:15 | disposition home or self-care (01) ==
LOC: FSED 17:45
DX: R07.89 Other chest pain (principal); K52.9 Noninfective gastroenteritis and colitis, unspecified; R11.2 Nausea with vomiting, unspecified; K29.70 Gastritis, unspecified, without bleeding; R94.31 Abnormal electrocardiogram [ECG] [EKG]; R16.1 Splenomegaly, not elsewhere classified; Q63.1 Lobulated, fused and horseshoe kidney; K57.90 Diverticulosis of intestine, part unspecified, without perforation or abscess without bleeding
CPT/HCPCS: 71046; 74176; 80048; 80076; 81003; 85025; 93005; 99284; J2405; J7030